=== PATIENT | male | born 1970 | race Caucasian/White ===

== ENCOUNTER 2017-04-04 15:01 | Emergency (ER) | payer OTHER ==
[~2017-04-04] VITALS: Ht 172.7 cm; Wt 99.8 kg
[2017-04-04] MEDS ORDERED: LIDOCAINE HCL/PF 1% 30 ML VIAL TP ONE (15:30)
[2017-04-04] MEDS ORDERED: ACETAMINOPHEN ES 500 MG TABLET PO ONE (15:30)
[2017-04-04] MEDS ORDERED: TDAP [DIPH/PERTUSSIS/TET] 0.5 ML VIAL IM ONE ×2 (15:30→16:19)
[2017-04-04] MEDS ORDERED: ACETAMINOPHEN ES 500 MG TABLET ONE (16:19)
[2017-04-04 16:25] VITALS: BP 136/107
== END 2017-04-04 16:26 | disposition home or self-care (01) ==
LOC: ER 15:03
DX: S51.812A Laceration without foreign body of left forearm, initial encounter (principal); W45.8XXA Other foreign body or object entering through skin, initial encounter; Y93.H3 Activity, building and construction; Y92.89 Other specified places as the place of occurrence of the external cause; Y99.0 Civilian activity done for income or pay; F17.200 Nicotine dependence, unspecified, uncomplicated
CPT/HCPCS: 12002; 90471; 90715; 99283; A4606; A6402; A6403; J3490; Z7610

== ENCOUNTER 2017-04-13 18:00 | Emergency (ER) | payer OTHER ==
[~2017-04-13] VITALS: Ht 175.3 cm; Wt 102.1 kg
[2017-04-13 18:04] VITALS: BP 134/91
--- NOTE | 2017-04-13 18:35 | NUR ---
WOUND CARE PROVIDED. D/C IN STABLE CONDITION.
== END 2017-04-13 18:37 | disposition home or self-care (01) ==
LOC: ER 18:01
DX: S51.812D Laceration without foreign body of left forearm, subsequent encounter (principal); L03.114 Cellulitis of left upper limb; F17.200 Nicotine dependence, unspecified, uncomplicated
CPT/HCPCS: 99283; A4606; Z7610

== ENCOUNTER 2024-01-28 04:52 | Emergency (ER) | payer OTHER ==
[~2024-01-28] VITALS: Ht 175.3 cm; Wt 83.9 kg
[2024-01-28 05:10] VITALS: TEMP 98.6
[2024-01-28] MEDS ORDERED: OXYC-128 PO (05:59)
[2024-01-28] MEDS ORDERED: IBUP-1957 PO (05:59)
[2024-01-28] MEDS ORDERED: CAPS1ADH5 TP (05:59)
[2024-01-28] MEDS ORDERED: KETOROLAC TROMETHAMINE INJ 30 MG/ML VIAL ONE (06:01)
[2024-01-28] MEDS: KETOROLAC TROMETHAMINE INJ 60 MG/2 ML VIAL IM ONE (06:07)
[2024-01-28 06:50] VITALS: BP 139/84; O2SAT 98
== END 2024-01-28 06:50 | disposition home or self-care (01) ==
LOC: ER 04:58
DX: M54.50 Low back pain, unspecified (principal)
CPT/HCPCS: 99283; 96372; J1885

== ENCOUNTER 2024-12-18 07:37 | Emergency (ER) | payer BC, OTHER ==
[~2024-12-18] VITALS: Ht 177.8 cm; Wt 61.2 kg
[~2024-12-18 07:37] MED LIST: CAPS1ADH5 TP; IBUP-1957 PO; OXYC-128 PO
[2024-12-18] MEDS ORDERED: KETOROLAC TROMETHAMINE INJ 30 MG/ML VIAL ONE (08:00)
[2024-12-18] MEDS: KETOROLAC TROMETHAMINE INJ 30 MG/ML VIAL IM ONE (08:10)
[2024-12-18] MEDS ORDERED: LIDOCAINE 5% (PATCH) 1 EA PATCH TP ONE (08:17)
[2024-12-18 08:30] LABS: BASOPHILS # (AUTO) 0.1 K/uL (0.0-0.2); BASOPHILS % (AUTO) 0.5 % (0.0-2.0); EOSINOPHILS # (AUTO) 0.5 K/uL (0.0-0.7); EOSINOPHILS % (AUTO) 3.6 % (0.0-6.0); HEMATOCRIT 43 % (39-51); HEMOGLOBIN 14.3 g/dL (13.5-17.5); LYMPHOCYTES # (AUTO) 3.3 K/uL (0.8-4.8); MEAN CORPUSCULAR HEMOGLOBIN 28 PG (26.0-33.0); MEAN CORPUSCULAR HGB CONC 34 g/dl (31.0-36.0); MEAN CORPUSCULAR VOLUME 84 fL (80-96); MONOCYTES # (AUTO) 1.3 K/uL (0.1-1.30); MONOCYTES % (AUTO) 9.8 % (2.0-12.0); NEUTROPHILS % (AUTO) 61.1 % (43.0-81.0); PLATELET COUNT (AUTO) 294 K/uL (150-450); RED BLOOD CELL COUNT(AUTO) 5.06 MIL/uL (4.5-6.0); RED CELL DISTRIBUTION WIDTH 14.2 % (11.5-15.0); WHITE BLOOD COUNT (AUTO) 13.1 K/uL (4.3-11.0)
[2024-12-18] MEDS: LIDOCAINE 5% (PATCH) 1 EA PATCH TP SCH (08:31)
[2024-12-18 08:42] LABS: CALCIUM, SERUM 8.5 mg/dL (8.5-10.1); POTASSIUM 4.2 mmol/L (3.5-5.1)
[2024-12-18 08:48] LABS: ALBUMIN 3.7 g/dL (3.4-5.0); BILIRUBIN,TOTAL 0.2 mg/dL (0.2-1.0); TOTAL PROTEIN, SERUM 6.9 g/dL (6.4-8.2)
[2024-12-18 09:45] LABS: APPEARANCE,URINE CLEAR (CLEAR); BILIRUBIN,URINE 1+ (NEGATIVE); BLOOD, URINE 3+ Ery/uL (NEGATIVE); COLOR,URINE YELLOW (YELLOW); KETONES,URINE NEGATIVE (NEGATIVE); LEUKOCYTE ESTERASE ,URINE NEGATIVE (NEGATIVE); NITRITE, URINE NEGATIVE (NEGATIVE); PROTEIN,URINE NEGATIVE (NEGATIVE); UGLUCOSE NEGATIVE (NEGATIVE); UROBILINOGEN,URINE 0.2 EU/dL (0.2)
[2024-12-18 09:50] LABS: ADD URINE CULTURE NO; BACTERIA,URINE Rare /HPF (None Seen); SQUAMOUS EPITHELIAL CELL,UR None Seen /HPF (None Seen); WBC,URINE 0-2 /HPF (0-3)
[2024-12-18] MEDS ORDERED: MORPHINE SULFATE INJ 4 MG/ML DISP.SYRIN ONE (09:56)
[2024-12-18] MEDS ORDERED: ONDANSETRON 4 MG TAB.RAPDIS ONE (09:56)
[2024-12-18] MEDS: ONDANSETRON 4 MG TAB.RAPDIS SL ONE (10:02)
[2024-12-18] MEDS: MORPHINE SULFATE INJ 2 MG/ML DISP.SYRIN IM ONE (10:03)
[2024-12-18] MEDS ORDERED: IBUP-1490 PO (10:57)
[2024-12-18] MEDS ORDERED: OXYC-128 PO (10:57)
[2024-12-18] MEDS ORDERED: TAMS-12 PO (10:57)
[2024-12-18 11:45] VITALS: BP 140/101; TEMP 98.3; O2SAT 96
== END 2024-12-18 11:46 | disposition home or self-care (01) ==
LOC: ER 07:53
DX: N23 Unspecified renal colic (principal); M54.50 Low back pain, unspecified; F17.200 Nicotine dependence, unspecified, uncomplicated; G89.29 Other chronic pain; Z79.1 Long term (current) use of non-steroidal anti-inflammatories (NSAID)
CPT/HCPCS: 99285; 74176; 96372 ×2; 85025; 83690; 81001; 36415; 80053; J1885; J2270; Q0162